=== PATIENT | female | born 1975 | race Caucasian/White ===

== ENCOUNTER 2017-09-22 13:00 | Emergency (ER) | payer OTHER, SELFPAY ==
[2017-09-22 13:13] VITALS: BP 121/78; PULSE 70; RESP 18; TEMP 37; O2SAT 98; BMI 35.2
--- NOTE | 2017-09-22 13:16 | HMH.EDUTC ---
[facility] [place] Disposition Clinical Impression: Sinusitis Qualifiers: Sinusitis location: maxillary Chronicity: acute Recurrence: not specified as recurrent Qualified Code(s): J01.00 - Acute maxillary sinusitis, unspecified Disposition: Home, Self-Care Condition on Discharge: Good Instructions: DI for Sinusitis Prescriptions: Amoxicillin/Potassium Clav [Augmentin 875-125 Tablet] 1 tab PO Q12H 10 Days #20 tab Fluticasone Propionate [Flonase Allergy Relief NS] 1 spray NS BID 10 Days #1 bot methylPREDNISolone [Medrol] 4 mg PO DAILY 6 Days #21 [email or web address] Referrals: Audelia Edwards APRN [Primary Care Provider] - Time of Disposition: 13:35 Medical Decision Making - Omar Inquiry Pt receiving controlled substance: No Vital Signs: 09/22/17 13:13 Temperature 98.6 F Temperature Source Oral Pulse Rate [Left Radial] 70 Respiratory Rate 18 Blood Pressure [Right Arm] 121/78 Blood Pressure Mean [Right Arm] 92 02 Sat by Pulse Oximetry 98 Oxygen Delivery Method Room Air - Lab Data Lab results reviewed: Yes: I reviewed the patient's lab results. Lab Results 09/22/17 13:18: Influenza Type A Ag Negative, Influenza Type B Ag Negative, Strep Scn Rapid Clinic Negative Orders (Tests/Meds): ORDERS Category Date Time Status Strep Screen Confirmation Stat Micro 09/22/17 13:18 Received [facility] [place] HPI - General Stated complaint: sore throat ear pain headache Time Seen by Provider: 09/22/17 13:16 - History of Present Illness Provider Complaint: Sore throat, ear pain, headache X 1 week. Extremely tired, no energy, and body is sore. Has sinus pain and pressure. No cough. No vomiting or diarrhea. Onset (ago): week(s) (1) Location: head Relieving factors: medication Exacerbating factors: movement Associated symptoms: fever/chills, headaches, malaise, weakness - Related Data Previous Rx's Medication Instructions Recorded Amoxicillin/Potassium Clav 1 tab PO Q12H 10 Days #20 tab 09/22/17 [Augmentin 875-125 Tablet] Fluticasone Propionate [Flonase 1 spray NS BID 10 Days #1 bot 09/22/17 Allergy Relief NS] methylPREDNISolone [Medrol] 4 mg PO DAILY 6 Days #21 tab.[email or web address] 09/22/17 Allergies Allergy/AdvReac Type Severity Reaction Status Date / Time No Known Allergies Allergy Verified 09/22/17 13:18 [facility] History I have reviewed the patient's past medical history: Yes ROS Obtained: Yes All systems reviewed & no additional complaints - Constitutional Constitutional: Reports body ache, Reports chills, Reports headache(s), Reports malaise, Reports weakness - ENT Ears, Nose, Mouth, and Throat: Reports nasal congestion, Reports sinus pain, Reports sinus pressure, Reports sore throat - Respiratory Respiratory: Yes cough Physical Exam - General General appearance: alert, in no apparent distress - Head Head exam: atraumatic, normocephalic, normal inspection - Eye Eye exam: Present: normal appearance, PERRL, EOMI - ENT ENT exam: Present: normal exam, normal oropharynx, mucous membranes moist, TM's normal bilaterally, normal external ear exam - Expanded ENT Exam Nose exam: Present: sinus tenderness Throat exam: Present: other (thick PND) - Neck Neck exam: Present: normal inspection, full ROM, trachea midline. Absent: meningismus, lymphadenopathy - Chest Chest inspection: Present: normal inspection, symmetric chest wall rise. Absent: tenderness - Respiratory Respiratory exam: Present: normal lung sounds bilaterally. Absent: respiratory distress - Cardiovascular Cardiovascular exam: Present: regular rate, normal rhythm. Absent: JVD - Abdominal Exam Abdominal exam: Present: soft, normal bowel sounds. Absent: distention, tenderness, guarding - Extremities Exam Extremities exam: Present: normal inspection, full ROM, normal capillary refill. Absent: calf tenderness - Back Exam Back exam: Present: normal inspection. Absent: tenderness - Neurological Exam Neurological exam: Present: rosemary
--- NOTE | 2017-09-22 13:23 | ED_ITS ---
[facility] [place] Disposition Clinical Impression: Sinusitis Qualifiers: Sinusitis location: maxillary Chronicity: acute Recurrence: not specified as recurrent Qualified Code(s): J01.00 - Acute maxillary sinusitis, unspecified Disposition: Home, Self-Care Condition on Discharge: Good Instructions: DI for Sinusitis Prescriptions: Amoxicillin/Potassium Clav [Augmentin 875-125 Tablet] 1 tab PO Q12H 10 Days #20 tab Fluticasone Propionate [Flonase Allergy Relief NS] 1 spray NS BID 10 Days #1 bot methylPREDNISolone [Medrol] 4 mg PO DAILY 6 Days #21 tab.[email or web address] Referrals: Audelia Edwards APRN [Primary Care Provider] - Time of Disposition: 13:35 Medical Decision Making - Omar Inquiry Pt receiving controlled substance: No Vital Signs: 09/22/17 13:13 Temperature 98.6 F Temperature Source Oral Pulse Rate [Left Radial] 70 Respiratory Rate 18 Blood Pressure [Right Arm] 121/78 Blood Pressure Mean [Right Arm] 92 02 Sat by Pulse Oximetry 98 Oxygen Delivery Method Room Air - Lab Data Lab results reviewed: Yes: I reviewed the patient's lab results. Lab Results 09/22/17 13:18: Influenza Type A Ag Negative, Influenza Type B Ag Negative, Strep Scn Rapid Clinic Negative Orders (Tests/Meds): ORDERS Category Date Time Status Strep Screen Confirmation Stat Micro 09/22/17 13:18 Received [facility] [place] HPI - General Stated complaint: sore throat ear pain headache Time Seen by Provider: 09/22/17 13:16 - History of Present Illness Provider Complaint: Sore throat, ear pain, headache X 1 week. Extremely tired, no energy, and body is sore. Has sinus pain and pressure. No cough. No vomiting or diarrhea. Onset (ago): week(s) (1) Location: head Relieving factors: medication Exacerbating factors: movement Associated symptoms: fever/chills, headaches, malaise, weakness - Related Data Previous Rx's Medication Instructions Recorded Amoxicillin/Potassium Clav 1 tab PO Q12H 10 Days #20 tab 09/22/17 [Augmentin 875-125 Tablet] Fluticasone Propionate [Flonase 1 spray NS BID 10 Days #1 bot 09/22/17 Allergy Relief NS] methylPREDNISolone [Medrol] 4 mg PO DAILY 6 Days #21 tab.ds.pk 09/22/17 Allergies Allergy/AdvReac Type Severity Reaction Status Date / Time No Known Allergies Allergy Verified 09/22/17 13:18 [facility] History I have reviewed the patient's past medical history: Yes ROS Obtained: Yes All systems reviewed & no additional complaints - Constitutional Constitutional: Reports body ache, Reports chills, Reports headache(s), Reports malaise, Reports weakness - ENT Ears, Nose, Mouth, and Throat: Reports nasal congestion, Reports sinus pain, Reports sinus pressure, Reports sore throat - Respiratory Respiratory: Yes cough Physical Exam - General General appearance: alert, in no apparent distress - Head Head exam: atraumatic, normocephalic, normal inspection - Eye Eye exam: Present: normal appearance, PERRL, EOMI - ENT ENT exam: Present: normal exam, normal oropharynx, mucous membranes moist, TM's normal bilaterally, normal external ear exam - Expanded ENT Exam Nose exam: Present: sinus tenderness Throat exam: Present: other (thick PND) - Neck Neck exam: Present: normal inspection, full ROM, trachea midline. Absent: meningismus, lymphadenopat
[2017-09-22 13:25] LABS: UTC Influenza A Antigen Negative (Negative); UTC Influenza B Antigen Negative (Negative); UTC Strep Screen (Rapid) Negative (Negative)
[2017-09-22 13:40] VITALS: BP 118/85; PULSE 75; RESP 20; TEMP 36.9; O2SAT 100
== END 2017-09-22 13:42 | disposition home or self-care (01) ==
PROVIDERS: Emergency Provider Physician Assistant; PCP Nurse Practitioner Family
DX: J01.00 Acute maxillary sinusitis, unspecified (principal)
CPT/HCPCS: 87804; 87880; 99202

== ENCOUNTER → 2017-10-22 13:35 | Outpatient (CLI) | payer OTHER, SELFPAY ==
--- NOTE | 2017-10-22 13:39 | XR_ITS ---
XR hip BI w PEL1V CLINICAL INDICATION: ITS.REASON: BILAT HIP PAIN ORDERING PHYSICIAN: Audelia Edwards PATIENT AGE: 42 years FINDINGS: No bony or joint body evident. Bilateral tubal ligation clips are present IMPRESSION: Negative bilateral hips
== END ==
PROVIDERS: PCP Nurse Practitioner Family; Visit Provider Nurse Practitioner Family
DX: M25.552 Pain in left hip (principal); M25.551 Pain in right hip
CPT/HCPCS: 73521

== ENCOUNTER 2019-10-06 12:42 | Outpatient (RCR) | payer OTHER, SELFPAY | END 2019-10-06 12:45 | disposition home or self-care (01) | LOC: PT 12:42 | PROVIDERS: PCP Nurse Practitioner Family; Visit Provider Nurse Practitioner Family | DX: M25.562 Pain in left knee (principal); M25.561 Pain in right knee | CPT/HCPCS: 97163 ==

== ENCOUNTER 2020-08-11 12:41 | Emergency (ER) | payer OTHER, SELFPAY ==
[2020-08-11 12:55] VITALS: BP 136/89; PULSE 76; RESP 16; TEMP 36.3; O2SAT 99; BMI 35.1
--- NOTE | 2020-08-11 13:16 | HMH.EDUTC ---
[facility] [place] Disposition Clinical Impression: Exposure to COVID-19 virus Sinusitis Qualifiers: Sinusitis location: unspecified location Chronicity: acute Recurrence: non-recurrent Qualified Code(s): J01.90 - Acute sinusitis, unspecified Disposition: Home, Self-Care Condition on Discharge: Good Instructions: DI for Sinusitis, Preventing the Spread of Coronavirus Discharge Instructions Additional Instructions: Drink plenty of fluids. Take tylenol for pain or fever. Return if you begin to have difficulty breathing. Follow up with your regular doctor. GO TO THE ER FOR ANY WORSENING SYMPTOMS Continue the medications that you are already on. Referrals: Nancy Guillory [Primary Care Provider] - Forms: Work/School Release Time of Disposition: 13:19 Medical Decision Making - Medical Records Medical records reviewed: No: I reviewed the patient's medical records. - Omar Inquiry Pt receiving controlled substance: No Vital Signs: 08/11/20 12:55 08/11/20 13:19 Temperature 97.4 F L 97.4 F L Temperature Source Oral Pulse Rate 76 Pulse Rate [Right Brachial] 76 Respiratory Rate 16 16 Blood Pressure 136/89 Blood Pressure [Right Arm] 136/89 Blood Pressure Mean [Right Arm] 104 Blood Pressure Source [Right Arm] Automatic Cuff Blood Pressure Position [Right Arm] Sitting 02 Sat by Pulse Oximetry 99 Orders (Tests/Meds): ORDERS Category Date Time Status Covid-19 Nasal PCR ([facility]) Routine Lab 08/11/20 12:50 Received [facility] [place] HPI - General Stated complaint: covid test Time Seen by Provider: 08/11/20 13:16 Mode of Arrival: Ambulatory Source of Information: Patient Limitations: No Limitations Description of Symptoms (Recalled from Triage Doc. by RN): COVID TEST D/T EXPOSURE. C/O LOSS OF SMELL, HOWEVER SHE IS HAVING SINUS ISSUES RIGHT NOW HEENT Symptoms (Recalled from RN notes): Yes Resp Symptoms (Recalled from RN notes): No Skin Symptoms (Recalled from RN notes): No MS Symptoms (Recalled from RN notes): No Functional Status (Recalled from RN notes): WNL - History of Present Illness Provider Complaint: She states that she has been sick for the past 3 days. She is having a cough and sinus congestion. She went to her pcp 2 days ago. She had a covid test done there that came back inconclusive. She would like for this to be repeated. She is currently taking amoxicillin for a sinus infection. - Related Data Previous Rx's Medication Instructions Recorded Amoxicillin/Potassium Clav 1 tab PO Q12H 10 Days #20 tab 09/22/17 [Augmentin 875-125 Tablet] Fluticasone Propionate [Flonase 1 spray NS BID 10 Days #1 bot 09/22/17 Allergy Relief NS] methylPREDNISolone [Medrol] 4 mg PO DAILY 6 Days #21 tab.ds.pk 09/22/17 Allergies Allergy/AdvReac Type Severity Reaction Status Date / Time No Known Allergies Allergy Verified 09/22/17 13:18 - Worker's Comp Is this a Worker's Comp case?: No [facility] History - Hepatitis A Screen Drug use history?: No High risk sexual behaviors?: No History of sexually transmitted infection?: No Currently employed?: No Childcare worker?: No Do you have indoor plumbing?: Yes Do you have electricity?: Yes Attestation statement:: This patient has been screened for Hepatitis A risk factors. I have reviewed the patient's past medical history: Yes Medical History: Denies:: Cancer, Diabetes Mellitus Type 1, Diabetes Mellitus Type 2, MRSA Amputation: No Fractures: No - Social History Smoking Status: Never smoker Alcohol Intake: never ROS Obtained: Yes All systems reviewed & no additional complaints - Constitutional Constitutional: Denies chills, Denies fever(s) - Eyes Eyes: Reports system reviewed and no additional complaints, except as docu - ENT Ears, Nose, Mouth, and Throat: Reports as per HPI - Cardiovascular Cardiovascular: Denies chest pain - Respiratory Respiratory: Reports as per HPI, Denies dyspnea, Denies stridor, Denies wheezing Physical
[2020-08-11 13:19] VITALS: BP 136/89; PULSE 76; RESP 16; TEMP 36.3; O2SAT 99
--- NOTE | 2020-08-11 19:33 | PC.NURSE ---
PATIENT NOTIFIED OF POSITIVE COVID RESULTS
== END 2020-08-11 13:26 | disposition home or self-care (01) ==
PROVIDERS: Emergency Provider Nurse Practitioner Family; PCP Nurse Practitioner Family
DX: U07.1 COVID-19 (principal); J01.90 Acute sinusitis, unspecified
CPT/HCPCS: 99202; G0463; U0003

== ENCOUNTER 2022-09-09 09:01 | Emergency (ER) | payer OTHER, SELFPAY ==
[2022-09-09 09:10] VITALS: BP 138/76; PULSE 73; RESP 22; TEMP 36.7; O2SAT 98; BMI 27.8
--- NOTE | 2022-09-09 09:24 | EXP.UTC ---
Discharge Plan Disposition Patient Disposition: Home, Self-Care Condition: Good Prescriptions Prescriptions: New methylprednisolone [Medrol (Cristobal)] 4 mg tablets,dose pack See Rx Instructions .Route .COMPLEX 6 Days Qty: 21 0RF Rx Instructions: taper pack; cefdinir 300 mg capsule 300 mg PO BID Qty: 20 0RF fluticasone propionate [Flonase Allergy Relief] 50 mcg/actuation spray,suspension 1 spray intranasal DAILY Qty: 16 0RF Rx Instructions: administer into each nostril No Action levothyroxine 75 mcg tablet 75 mcg PO DAILY Referrals Follow up/Referrals: Nancy Guillory [Primary Care Provider] - See instructions Activity Restrictions/Add. Instructions Additional Instructions/Restrictions: *Monitor Temp, Over the counter Motrin or Tylenol as directed/as needed Tylenol every 4 hours and Motrin every 6 hours (as long as your family doctor has told you that you can take it) for fever or pain. and straight to ER if unable to lower temp less than 101.0 after medication given *Warm salt water gargles may help to soothe the throat *Throat Lozenges? *Warm fluids like tea with honey may help to soothe the throat? *Sleep elevated *Humidifier/Vaporizer *Flonase 2 sprays in each nostril daily but be aware that it may take 2-3 days before you notice improvement Your throat swab was sent for culture. Those results are typically sent to your primary care. Be sure to follow up in 2-3 days with your family doctor/primary care physician if no improvement so they can review those result and treat if necessary. If you don?t have a primary care doctor, I recommend you get one but in the mean time, you will have to return to a walk in clinic Follow up IMMEDIATELY for new or worsening symptoms or no Noticeable improvement over the next 48-72 hours. 911 for difficulty breathing or swallowing Clinical Impressions Clinical Impression: Otitis media Stand Alone Forms Stand Alone Forms: Work/School Release Instructions Patient Instructions: Sore Throat, Middle Ear Infection Discharge ED Provider: Claire Orta [facility] General Stated complaint: sore throat, ear pain, ALBARADO Time Seen by Provider: 09/09/22 09:24 History of Present Illness Provider Complaint: Patient states that she has been having pain in her left ear and sore throat for several days that has continued to get worse States that today she woke up and her throat felt sore and irritated and hurts when she swallows or tries to eat or drink something and had a little headache 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 Related Data Home Medications Medication Instructions Recorded Confirmed levothyroxine 75 mcg tablet 75 mcg PO DAILY THYROID 09/09/22 09/09/22 Previous Rx's Medication Instructions Recorded cefdinir 300 mg capsule 300 mg PO BID #20 caps 09/09/22 fluticasone propionate 50 1 spray intranasal DAILY #16 grams 09/09/22 mcg/actuation nasal spray,suspension (Flonase Allergy Relief) methylprednisolone 4 mg tablets in See Rx Instructions .Route 09/09/22 a dose pack (Medrol (Cristobal)) .COMPLEX 6 days #21 tabs Allergies Allergy/AdvReac Type Severity Reaction Status Date / Time No Known Allergies Allergy Verified 09/22/17 13:18 [facility] Disclaimer: The information contained in this section may have been updated after the patient was seen, as this information can be updated by other users. Social History Smoking Status: Never smoker alcohol intake: never current occupational status: employed Travel in the last 8 weeks: None ROS Obtained: Yes All systems reviewed & no additional complaints except as documented and Yes Systems reviewed as appropriate & no additional complaints except as documented Constitutional Constitutional: Reports system reviewed and no additional complaints, except as documented, Reports as per HPI and Reports headache(s) ENT Ear
[2022-09-09 09:29] LABS: UTC Strep Screen (Rapid) Negative (Negative)
[2022-09-09 09:34] VITALS: BP 138/76; PULSE 73; RESP 22; TEMP 36.7; O2SAT 98
== END 2022-09-09 09:57 | disposition home or self-care (01) ==
PROVIDERS: Emergency Provider Nurse Practitioner; PCP Nurse Practitioner Family
DX: H66.90 Otitis media, unspecified, unspecified ear (principal)
CPT/HCPCS: 87880; 99212; 99213; G0463

== ENCOUNTER 2023-12-29 19:03 | Emergency (ER) | payer BC, SELFPAY ==
--- NOTE | 2023-12-29 19:42 | XR_ITS ---
PROCEDURE INFORMATION: Exam: XR Left Ankle Exam date and time: 12/29/2023 7:56 PM Age: 48 years old Clinical indication: Injury or trauma; Fall; Blunt trauma; Ankle; Left; Additional info: Fell TECHNIQUE: Imaging protocol: Radiologic exam of the left ankle. Views: 3 or more views. COMPARISON: CR Foot L 12/29/2023 7:53 PM FINDINGS: Bones/joints: Proximal lateral malleolus spiral fracture with 2 mm of posterior displacement. No widening of the lateral clear space. Soft tissues: Lateral ankle soft tissue swelling. IMPRESSION: Mm displaced proximal lateral malleolus spiral fracture.
--- NOTE | 2023-12-29 19:42 | XR_ITS ---
PROCEDURE INFORMATION: Exam: XR Left Foot Exam date and time: 12/29/2023 7:53 PM Age: 48 years old Clinical indication: Injury or trauma; Fall; Blunt trauma; Foot; Left; Additional info: Fell TECHNIQUE: Imaging protocol: Radiologic exam of the left foot. Views: 3 or more views. COMPARISON: No relevant prior studies available. FINDINGS: Bones/joints: Proximal lateral malleolus spiral fracture with 2 mm of posterior displacement. Soft tissues: Lateral ankle soft tissue swelling. IMPRESSION: Minimally displaced proximal lateral malleolus spiral fracture.
[2023-12-29 20:00] VITALS: BP 127/70; PULSE 75; RESP 18; TEMP 36.7; O2SAT 100; BMI 27.7
--- NOTE | 2023-12-29 20:31 | EXP.UTC ---
Discharge Plan Disposition Patient Disposition: Home, Self-Care Condition: Good Prescriptions Prescriptions: No Action fluconazole 150 mg tablet 150 mg PO Q3D Qty: 2 0RF Rx Instructions: may repeat second dose 72 hrs after first dose if symptoms persist ondansetron 4 mg tablet,disintegrating 4 mg PO Q6H PRN (Reason: nausea and vomiting) Qty: 30 0RF levothyroxine 75 mcg tablet 75 mcg PO DAILY methylprednisolone [Medrol (Cristobal)] 4 mg tablets,dose pack See Rx Instructions .Route .COMPLEX 6 Days Qty: 21 0RF Rx Instructions: taper pack; cefdinir 300 mg capsule 300 mg PO BID Qty: 20 0RF fluticasone propionate [Flonase Allergy Relief] 50 mcg/actuation spray,suspension 1 spray intranasal DAILY Qty: 16 0RF Rx Instructions: administer into each nostril Referrals Follow up/Referrals: Nancy Guillory [Primary Care Provider] - See instructions Activity Restrictions/Add. Instructions Additional Instructions/Restrictions: NO Weight bearing - crutches rest Ice with cold pack for 20 minutes remove may repeat for comfort every hour splint for support and swelling no less in the shower. Be sure not too tight but not to lose either Elevate with ankle above your heart as much as possible to help reduce swelling and therefore pain Ibuprofen every 6 hours as needed for pain or inflammation. If needs something more you can take Tylenol every 4 hours as needed as long as her primary care has told he was okayed for you to take both. If improving any do not need to follow-up you can bring begin exercising 2-3 weeks after injury. Follow-up immediately if new or worsening symptoms or no noticeable improvement over the next 3-5 days. call ortho tomorrow for appointment Clinical Impressions Clinical Impression: Fibula fracture Instructions Patient Instructions: Fibula Shaft Fracture Discharge ED Provider: Jeanette ([facility])Lai [facility] [place] HPI General Stated complaint: AO 12/29/23 1835 injury left foot Mode of Arrival: Ambulatory Source of Information: Patient Limitations: No Limitations Time Seen by Provider: 12/29/23 20:32 Description of Symptoms (Recalled from Triage Doc. by RN): Pt fell off the back steps and hurt left ankle. She cannot walk on it. HEENT Symptoms (Recalled from RN notes): No Resp Symptoms (Recalled from RN notes): No Skin Symptoms (Recalled from RN notes): No MS Symptoms (Recalled from RN notes): Yes Functional Status (Recalled from RN notes): n/a History of Present Illness Provider Complaint: 48 yr old female presents for left ankle pain after falling off deck and landing on ankle Related Data Home Medications Medication Instructions Recorded Confirmed levothyroxine 75 mcg tablet 75 mcg PO DAILY THYROID 09/09/22 09/09/22 Previous Rx's Medication Instructions Recorded cefdinir 300 mg capsule 300 mg PO BID #20 caps 09/09/22 fluticasone propionate 50 1 spray intranasal DAILY #16 grams 09/09/22 mcg/actuation nasal spray,suspension (Flonase Allergy Relief) methylprednisolone 4 mg tablets in See Rx Instructions .Route 09/09/22 a dose pack (Medrol (Cristobal)) .COMPLEX 6 days #21 tabs fluconazole 150 mg tablet 150 mg PO Q3D 2 doses #2 tabs 04/25/23 ondansetron 4 mg disintegrating 4 mg PO Q6H PRN nausea and 05/20/23 tablet vomiting #30 tabs Allergies Allergy/AdvReac Type Severity Reaction Status Date / Time No Known Allergies Allergy Verified 12/29/23 20:31 Worker's Comp Is this a Worker's Comp case?: No PFSH PFS Disclaimer: The information contained in this section may have been updated after the patient was seen, as this information can be updated by other users. Social History , COMPUTER OPERATIONS TECHNICIAN) Smoking Status: Never smoker alcohol intake: never current occupational status: employed Travel in the last 8 weeks: None ROS Obtained: Yes All systems reviewed & no additional complaints except as documented Constitutional Constitutional: Reports system reviewed and no additional complaints, except as documented Eyes Eyes: Reports system reviewed and no additional complaints, except as documented ENT Ears, Nose, Mouth, and Throat: Reports system reviewed and no additional complaints, except as documented Cardiovascular Cardiovascular: Reports system reviewed and no additional complaints, except as documented Respiratory Respiratory: Reports system reviewed and no additional complaints, except as documented Gastrointestinal Gastrointestingal: Reports system reviewed and no additional complaints, except as documented Musculoskeletal Musculoskeletal: Reports system reviewed and no additional complaints, except as documented, Reports as per HPI, Reports arthralgias, Reports joint swelling and Reports limited range of motion Integumentary/Breasts Skin/Breast: Reports system reviewed and no additional complaints, except as documented Neurologic Neurologic: Reports system reviewed and no additional complaints, except as documented Endocrine Endocrine: Reports system reviewed and no additional complaints, except as documented Hematologic/Lymphatic Henatologic/Lymphatic: Reports system reviewed and no additional complaints, except as documented Allergic/Immunologic Allergic/Immunologic: Reports system reviewed and no additional complaints, except as documented Physical Exam General General appearance: alert and in no apparent distress Head Head exam: atraumatic Eye Eye exam: Present normal appearance and PERRL ENT ENT exam: Present normal exam Respiratory Respiratory exam: Present normal lung sounds bilaterally Cardiovascular Cardiovascular exam: Present regular rate and normal rhythm Expanded Lower Extremity Exam Left: Ankle exam: Present tenderness and swelling Ankle image: 1. tenderness, swelling Neurological Exam Neurological exam: Present alert and oriented X3 Skin Skin exam: Present warm and intact Medical Decision Making Medical Records Medical records reviewed: Yes I reviewed the patient's medical records. Omar Inquiry Pt receiving controlled substance: No Omar was queried for this patient: No Vital Signs: 12/29/23 20:00 Temperature 98.1 F Temperature Source Oral Pulse Rate [Right Radial] 75 Respiratory Rate 18 Blood Pressure [Right Arm] 127/70 Blood Pressure Mean [Right Arm] 89 Blood Pressure Source [Right Arm] Automatic Cuff Blood Pressure Position [Right Arm] Sitting 02 Sat by Pulse Oximetry 100 Oxygen Delivery Method Room Air Orders (Tests/Meds): ORDERS Category Date Time Status Ankle XR - Left minimum 3 Views [XR ankle LT min 3V] Exams 12/29/23 19:42 Taken Stat Foot XR left minimum 3 views [XR foot LT min 3V] Stat Exams 12/29/23 19:42 Taken Radiology Data #1: Image(s): Tib/Fib Image Reviewed: Yes I reviewed the patient's radiology image Preliminary Findings: Abnormal (fracture fibula) Physician Consults Physician Consulted: dr gilbert Time: 20:38 Reason -: Orthopedic Eval/Care Comment/Response: fibula fx, posterior ortho glass splint, crutches, non wt bearing call for appointment tomorrow
[2023-12-29 21:29] VITALS: BP 127/70; PULSE 75; RESP 18; TEMP 36.7; O2SAT 100
--- NOTE | 2023-12-31 09:43 | PC.NURSE ---
Placed pt in orthoglass splint and referred to ortho with dr gilbert.
== END 2023-12-29 21:29 | disposition home or self-care (01) ==
PROVIDERS: Emergency Provider Nurse Practitioner Family; PCP Nurse Practitioner Family
DX: S82.62XA Displaced fracture of lateral malleolus of left fibula, initial encounter for closed fracture (principal); W17.89XA Other fall from one level to another, initial encounter; M25.572 Pain in left ankle and joints of left foot
CPT/HCPCS: 73610; 73630; 99212; 99214; G0463

== ENCOUNTER 2023-12-30 12:27 | Outpatient (CLI) | payer BC, SELFPAY ==
[2023-12-30 12:57] LABS: Basophils # 0.1 K/mm3 (0-0.2); Basophils % 1.7 % (0.1-2.0); Eosinophils # 0.1 K/mm3 (0.0-0.4); Eosinophils % 1.4 % (0.1-12.0); Hematocrit 40.9 % (37.0-47.0); Hemoglobin 12.9 g/dL (12.2-16.2); Lymphocytes # 2.5 K/mm3 (0.7-4.5); Lymphocytes % 37.2 % (10-50); Mean Corpuscular HGB Conc 31.7 g/dL (31.8-35.4); Mean Corpuscular Hemoglobin 29.1 pg (27.0-31.2); Mean Corpuscular Volume 91.8 fl (81-99); Mean Platelet Volume 8.1 fl (7.4-10.4); Monocytes # 0.3 K/mm3 (0.1-1.0); Monocytes % 4.5 % (1.7-9.3); Neutrophils # 3.7 K/mm3 (1.8-7.8); Neutrophils % 55.3 % (37.0-80.0); Platelet Count 337 K/mm3 (142-424); Red Blood Count 4.45 M/mm3 (4.20-5.40); Red Cell Distribution Width 13.8 % (11.5-17.5); White Blood Count 6.8 K/mm3 (4.8-10.8)
[2023-12-30 13:14] LABS: Chloride 111 mmol/L (98-107); Potassium 3.9 mmoL/L (3.5-5.1); Sodium 138 mmol/L (136-145)
[2023-12-30 13:16] LABS: Blood Urea Nitrogen 12 mg/dl (7-17); Estimated Glomerular Filt Rate 90 ml/min (>60); GFR (African American) 109 ML/MIN (>60)
[2023-12-30 13:17] LABS: Alanine Aminotransferase 15 U/L (12-78); Albumin Level 3.5 g/dl (3.5-5.0); Albumin/Globulin Ratio 1.3 (1.1-1.8); Alkaline Phosphatase 58 U/L (38-126); Anion Gap 7.9 mEq/L (5-15); Aspartate Amino Transferase 21 U/L (14-36); Bilirubin,Total 0.5 mg/dl (0.2-1.3); Calcium 8.9 mg/dl (8.4-10.2); Carbon Dioxide 23 mmol/L (22.0-30.0); Globulin 2.7 g/dL (1.3-3.2); Glucose 78 mg/dl (74-100); Total Protein,Serum 6.2 g/dl (6.3-8.2)
== END 2023-12-30 23:59 | disposition home or self-care (01) ==
LOC: LAB 12:28
PROVIDERS: PCP Nurse Practitioner Family; Visit Provider Physician Assistant
DX: S82.432A Displaced oblique fracture of shaft of left fibula, initial encounter for closed fracture (principal); W10.8XXA Fall (on) (from) other stairs and steps, initial encounter
CPT/HCPCS: 36415; 80053; 85025

== ENCOUNTER 2024-01-03 08:03 | Day surgery (SDC) | payer BC, SELFPAY ==
[2024-01-02 10:03] VITALS: BMI 33.5
[2024-01-03] VITALS (10 sets, daily range): BP systolic 108–144; BP diastolic 70–89; PULSE 66–94; RESP 16–18; TEMP 36.6–36.9; O2SAT 90–100; BMI 33.5
[2024-01-03 09:09] LABS: Urine Pregnancy, HCG Qual. Negative (Negative)
--- NOTE | 2024-01-03 10:49 | P.PNANES_ITS ---
[facility] Disclaimer: The information contained in this section may have been updated after the patient was seen, as this information can be updated by other users. Social History Smoking Status: Never smoker alcohol intake: never substance use type: denies use current occupational status: employed Travel in the last 8 weeks: None [facility] Anesthesia Checklist Patient Identification Patient Identification: Arm Band, Family and Verbal (Name & ) Structural Data Admitted From: Home Planned Operative Procedure/s: ORIF LEFT Lateral Malleolous FX Consent for Planned Operative Procedure(s) Verified: Yes Verified Documents: Surgical Consent and History and Physical NPO Status Verified Time NPO: 20:30 Chart Verification Results Verified: CBC, BMP and HCG Additional verifications Patient : No Anesthesia Reactions: No Hx Blood Transfusions: No Blood Transfusion Reaction: No Cardiovascular Assessment Heart Sounds: S1 & S2 Pulse Rhythm: Irregular Peripheral Edema: No Airway Assessment Mallampati Score:: Class II C-Spine Mobility Assessed: Yes (FROM) TMJ Mobility Assessed: Yes Dentition: Good Dentition (Nothing loose per pt.) Neurological Assessment Level of Consciousness: Awake, Alert, Appropriate and Follows Commands Hx Seizures: No Numbness or tingling in extremities: No Anesthesia Plan Anesthesia Risk discussed: Yes Anesthesia Plan: Verified ASA Class: II Anesthesia Type: General w/block
--- NOTE | 2024-01-03 10:50 | XR_ITS ---
FINAL REPORT CLINICAL HISTORY: ORIF LEFT ANKLE 12 SECONDS FLUORO TIME 0.50MBY COMPARISON: None FINDINGS: FLUOROSCOPY LESS THAN 1 HOUR HISTORY: ORIF left ankle FINDINGS: Fluoroscopic guidance was provided for intraoperative exam for ORIF. 2 spot films were obtained. 12 seconds of fluoroscopy time were used. 0.5 mGy of exposure were accumulated. IMPRESSION: As above. Reviewed, Interpreted and Dictated by Yen Pritchett MD Transcribed by Santa Jensen Authenticated and [facility]
--- NOTE | 2024-01-03 12:20 | EXP.OP.NOTE ---
Date of procedure: 01/03/24 Pre-op Diagnosis:: Left ankle lateral malleolus fracture Post-op Diagnosis:: Same Procedure performed:: Open reduction internal fixation lateral malleolus left ankle Surgeon:: Wilver Townsend DO Bobbin Loose End Finder(s):: Antonio VITAL PREPRESS TECHNICIAN:: Stacia Garrison Anesthesia: GETA and regional Estimated blood loss (mL): 0 Clinical Note:: Implants Synthes small frag set with one third tubular plate Operative findings:: See dictation Operative note:: Patient is identified preoperatively. Left ankle marked with yes and my initials. Underwent a block with anesthesia. Taken to the operating room. Placed upon the operating bed. General anesthesia was administered and airway secured. Left lower extremity was then prepped and draped in normal sterile fashion. Once prepped and draped final operative timeout performed to identify proper patient procedure and extremity. Everyone involved the case agreed. There is no counter indications to beginning. Did receive preoperative antibiotics. Marking pen was used to el the bony landmarks of the lateral malleolus x-ray was brought into identify the fracture site. Esmarch was used to exsanguinate the extremity pneumatic tourniquet inflated to 300 mmHg. Skin knife was used incise the skin, careful dissection was taken down to identify the fracture site and lateral malleolus. Fracture site was cleaned. Using a [id number] and lobster claw clamp anatomical reduction was obtained the lateral malleolus. This temporary fixation remained in place as a an anterior to posterior lag screw was placed. Once the lag screw was placed one third tubular plate was selected cortical screws placed proximally and 4-0 cancellous screws distally to give good plate stabilization of the fracture. X-rays taken AP and lateral views and saved. Irrigation of the wound performed. Deep layers closed with 0 Vicryl, subcutaneous with 2-0 Vicryl 3-0 nylon the skin for closure. Sterile dressing placed. Well-padded posterior splint placed. Patient waken anesthesia taken recovery stable condition. Condition: stable Disposition: PACU Complications:: None apparent
--- NOTE | 2024-01-03 12:43 | EXP.ANES.I ---
[facility] Anesthesia Record Part I Anesthesia Record I Intake, IV Amount: 900 Hydration: Adequate Estimated blood loss (mL): 10 Urine output (mL): 0 Blood Products used (#): none Blood Pressure: 144/88 SaO2: 96 Pulse Rate: 94 Airway Patency: Patent Respiratory Rate: 16 Temperature: 98.4 F Patient is:: Awake (Talking) and Stable Stable to PACU at:: 12:45
--- NOTE | 2024-01-03 14:13 | EXP.ANES.II ---
[facility] Anesthesia Record Part II Anesthesia Record Part II Discharge Time: 13:10 Destination: Surgical Day Care (OP Surgery) PACU nurse assessment reviewed?: Yes Patient Condition:: Good Anesthesia Complications:: None Swallowing reflex intact?: Yes Airway Patency: Patent Cyanosis?: No Blood Pressure: 123/89 SaO2: 95 Respiratory Rate: 16 Pulse Rate: 74 Temperature: 98.4 F Mental Status: Alert & Oriented Pain level:: 0 Nausea and/or vomitting:: None Intake, IV Amount: 900 Hydration: Adequate
== END 2024-01-03 13:50 | disposition home or self-care (01) ==
PROVIDERS: PCP Nurse Practitioner Family; Visit Provider Orthopaedic Surgery
PROC: (CPT 27792; principal; 2024-01-03 09:45)
DX: S82.62XA Displaced fracture of lateral malleolus of left fibula, initial encounter for closed fracture (principal); W10.8XXA Fall (on) (from) other stairs and steps, initial encounter; Y92.018 Other place in single-family (private) house as the place of occurrence of the external cause
CPT/HCPCS: 27792; 73600; 76000; 81025; 96374; C1713; J1885; J2250; J2405; J3010

== ENCOUNTER 2024-01-16 10:31 | Outpatient (CLI) | payer BC, SELFPAY ==
--- NOTE | 2024-01-16 10:36 | XR_ITS ---
FINAL REPORT CLINICAL HISTORY: Left lateral malleolus orif COMPARISON: Prior intraoperative films dated 01/03/2024 FINDINGS: LEFT ANKLE: Three views of the left ankle were obtained. There is no acute fracture or dislocation. Postoperative changes noted in the distal fibula with an orthopedic end plate and screws. Lateral soft tissue swelling is present. The joint spaces and mortise are intact. There is no soft tissue abnormality. IMPRESSION: Postoperative changes of ORIF distal fibula. Reviewed, Interpreted and Dictated by Facundo Alcala III, MD Transcribed by Santa Jensen Authenticated and [facility]
== END 2024-01-16 23:59 | disposition home or self-care (01) ==
LOC: RAD 10:32
PROVIDERS: PCP Nurse Practitioner Family; Visit Provider Orthopaedic Surgery
DX: M25.572 Pain in left ankle and joints of left foot (principal)
CPT/HCPCS: 73610

== ENCOUNTER 2024-02-13 09:25 | Outpatient (CLI) | payer BC, SELFPAY ==
--- NOTE | 2024-02-13 09:33 | XR_ITS ---
FINAL REPORT CLINICAL HISTORY: lt ankle pain COMPARISON: 01/16/2024 FINDINGS: LEFT ANKLE: Three views of the left ankle were obtained. There is a lateral malleolus fracture with postop changes from ORIF. A screw plate and multiple screws are present. There is no new bony abnormality. A plantar calcaneal spur is noted. The joint spaces and mortise are intact. There is no soft tissue abnormality. IMPRESSION: Fracture with postoperative changes as described. No acute bony abnormality. Reviewed, Interpreted and Dictated by Facundo Alcala III, MD Transcribed by Muriel Zamudio Authenticated and [facility]
== END 2024-02-13 23:59 | disposition home or self-care (01) ==
LOC: RAD 09:26
PROVIDERS: PCP Nurse Practitioner Family; Visit Provider Orthopaedic Surgery
DX: M25.572 Pain in left ankle and joints of left foot (principal)
CPT/HCPCS: 73610

== ENCOUNTER 2024-03-12 09:42 | Outpatient (CLI) | payer BC, SELFPAY ==
--- NOTE | 2024-03-12 09:47 | XR_ITS ---
FINAL REPORT CLINICAL HISTORY: Left ankle orif sx december 2023 COMPARISON: 02/13/2024 FINDINGS: LEFT ANKLE: Three views of the left ankle were obtained. There is no acute fracture or dislocation. There are postoperative changes in the distal fibula once again noted, with a sideplate and multiple screws bridging a distal fibular fracture. There is probable interval healing of the fracture since the prior exam. The joint spaces and mortise are intact. A plantar calcaneal spur is once again noted. Soft tissue swelling surrounding the ankle remains present. IMPRESSION: Post operative changes in the distal fibula once again noted, with probable interval healing of the distal fibular fracture since the prior exam. Reviewed, Interpreted and Dictated by Facundo Alcala III, MD Transcribed by Santa Jensen Authenticated and [facility]
== END 2024-03-12 23:59 | disposition home or self-care (01) ==
LOC: RAD 09:43
PROVIDERS: PCP Nurse Practitioner Family; Visit Provider Orthopaedic Surgery
DX: M25.572 Pain in left ankle and joints of left foot (principal)
CPT/HCPCS: 73610

== ENCOUNTER 2024-06-23 16:00 | Outpatient (RCR) | payer BC, SELFPAY | END 2024-06-23 23:59 | disposition home or self-care (01) | LOC: PT 16:00 | PROVIDERS: PCP Nurse Practitioner Family; Visit Provider Nurse Practitioner Family | DX: M75.51 Bursitis of right shoulder (principal) | CPT/HCPCS: 97014; 97035; 97110; 97140; 97163; G0283 ==

== ENCOUNTER 2024-09-08 15:20 | Outpatient (CLI) | payer BC, SELFPAY ==
--- NOTE | 2024-09-08 15:22 | XR_ITS ---
FINAL REPORT CLINICAL HISTORY: Left ankle pain surgery december 2023 fell 2 weeks ago, pain and swelling on the lateral side COMPARISON: 03/12/2024 FINDINGS: LEFT ANKLE Three views demonstrate no acute fracture or dislocation. Post ORIF changes are seen of the distal fibula. Hardware is unremarkable. The visualized joint spaces are normally aligned. The soft tissues are unremarkable. IMPRESSION: Postoperative changes without acute bony abnormality. Reviewed, Interpreted and Dictated by Yen Pritchett MD Transcribed by Rachel Garcia Authenticated and [facility]
== END 2024-09-08 23:59 | disposition home or self-care (01) ==
LOC: RAD 15:21
PROVIDERS: PCP Nurse Practitioner Family; Visit Provider Orthopaedic Surgery
DX: M25.572 Pain in left ankle and joints of left foot (principal)
CPT/HCPCS: 73610

== ENCOUNTER 2024-10-05 09:23 | Emergency (ER) | payer BC, SELFPAY ==
[2024-10-05 09:30] VITALS: BP 134/89; PULSE 84; RESP 16; TEMP 36.4; O2SAT 98; BMI 28.9
--- NOTE | 2024-10-05 09:41 | CT_ITS ---
FINAL REPORT TECHNIQUE: Noncontrast exam This study was performed with techniques to keep radiation doses as low as reasonably achievable, (ALARA). Individualized dose reduction techniques using automated exposure control or adjustment of mA and/or kV according to the patient''s size were employed. CLINICAL HISTORY: new anisocoria L eye 6mm reactive FINDINGS: No abnormal density is seen. Ventricles are normal. There is no hemorrhage. No mass effect is seen. Bone windows show no evidence of fracture. IMPRESSION: No acute findings Reviewed, Interpreted and Dictated by Yen Pritchett MD Transcribed by Yanelis Beckwith Authenticated and [facility]
--- NOTE | 2024-10-05 09:41 | XR_ITS ---
FINAL REPORT CLINICAL HISTORY: fall, recent surgery, eval hardware. Lateral mal p COMPARISON: 09/08/2024 FINDINGS: Three views show post ORIF changes of the distal fibula. There is no evidence of acute fracture. The mortise is intact. IMPRESSION: Stable exam. Reviewed, Interpreted and Dictated by Yen Pritchett MD Transcribed by Yanelis Beckwith Authenticated and . [facility]
[2024-10-05] MEDS: IBUPROFEN 600 MG TABLET PO (09:51)
[2024-10-05] MEDS: ACETAMINOPHEN 500MG TAB 1000 MG PO (09:51)
--- NOTE | 2024-10-05 09:58 | ED_ITS ---
Discharge Plan Disposition Patient Disposition: Home, Self-Care Chief Complaint: Extremity Injury, Lower Prescriptions Prescriptions: No Action lamotrigine 150 mg tablet 150 mg PO DAILY Patient Comments: TAKE 1 TABLET BY MOUTH ONCE DAILY FOR MOOD ondansetron 8 mg tablet,disintegrating 8 mg PO TIDP PRN (Reason: Nausea And Vomiting) Patient Comments: DISSOLVE 1 TABLET IN MOUTH EVERY 8 HOURS NEEDED FOR NAUSEA AND VOMITING (DME) insulin syringe-needle U-100 [Sure Comfort Insulin Syringe] 0.5 mL 31 gauge x 5/16 syringe See Rx Instructions .ROUTE .MEDSUPPLY Qty: 10 Patient Comments: USE DIRECTED Rx Instructions: As directed celecoxib [Celebrex] 200 mg capsule 200 mg PO DAILY Qty: 30 2RF levothyroxine 75 mcg tablet 75 mcg PO DAILY Patient Comments: TAKE 1 TABLET BY MOUTH ONCE DAILY ON AN EMPTY STOMACH 30 MINUTES BEFORE BREAKFAST tirzepatide (weight loss) 2.5 mg/0.5 mL Pen Injector 2.5 mg SQ WEEKLY Rx Instructions: for 4 weeks Referrals Follow up/Referrals: Nnacy Guillory [Primary Care Provider] - See instructions Activity Restrictions/Add. Instructions Additional Instructions/Restrictions: Call your family doctor to establish care for this visit to the emergency department and schedule follow-up within 48 hours to ensure improvement. If you have any worsening of your condition or any other concerning signs or symptoms, return to the emergency department or your primary care doctor for further evaluation. Wash hands really well before taking contacts out and putting them in. Discontinue antihistamine eyedrops for the next 24 hours. If pupils do not return to equal size, return to the emergency department for CT angiograms of the head and neck to make sure we are ruling out aneurysm. Clinical Impressions Clinical Impression: Anisocoria, Acute left ankle pain, Fall Print Language Print Language: Ethiopian Discharge ED Provider: Stephon Luna General Adult [facility] General Chief complaint: Extremity Injury, Lower Stated complaint: AO 10/05 0840 L ankle pain Time Seen by Provider: 10/05/24 09:33 Mode of Arrival: Wheelchair Source of Information: Patient and Medical Record Description of Symptoms (Recalled from ER Triage Doc. by RN): Patient came to ED via wheelchair and c/o right ankle pain after a fall chasing a child at school/work around 0845. Pt does have redness and swelling on ankle and a small abraision on right knee. Patient mobility of ankle is limited to flexion +2 no hyperextension, with minimal lateral movement. Pt states she had surgery on R ankle in January of 2024. Upon assessment of other systems, right eye is substanitally dilated more than left. PT states that she does wear a contact only in her right eye but has never noticed the difference in dilation until this morning and does not recall hitting her head during her fall this morning. Patient is alert and oriented to time, place, self, and situation. Patient appears dressed appropriately and grimaces in pain when assisted from wheelchair to bed. Respirations are within normal limits and unlabored. Pulses are +2 and cap refill is <3secs. States pain is 8/10. History of Present Illness HPI narrative: Please note that above description of symptoms, in this electronic medical record under categorization of recalled from ER triage doctor by RN are reflective of an initial nursing assessment, however, is not reflective of my full history and physical exam that was personally taken and clarified. Consequentially, this preceding description of symptoms, which may include the patient's categorized chief complaint in the EMR, do not reflect my personal clinical impression, and the ultimate description of history of present illness and patient stated complaints should be deferred to this section of the note. Unless stated otherwise or congruent with this section of the note, additional signs, symptoms, or incongruence should be interpreted as inaccurate with my clinical impression. Related Data Home Medications ?Medication ?Instructions ?Recorded ?Confirmed levothyroxine 75 mcg tablet 75 mcg PO DAILY 01/03/24 10/05/24 lamotrigine 150 mg tablet 150 mg PO DAILY 03/12/24 10/05/24 insulin syringe-needle U-100 0.5 #10 ea 09/08/24 10/05/24 mL 31 gauge x 5/16 (Sure Comfort Insulin Syringe) ondansetron 8 mg disintegrating 8 mg PO TIDP PRN Nausea And 09/08/24 10/05/24 tablet Vomiting tirzepatide (weight loss) 2.5 2.5 mg SQ WEEKLY 10/05/24 10/05/24 mg/0.5 mL subcutaneous pen injector Previous Rx's ?Medication ?Instructions ?Recorded celecoxib 200 mg capsule (Celebrex) 200 mg PO DAILY #30 caps 09/10/24 Allergies Allergy/AdvReac Type Severity Reaction Status Date / Time No Known Allergies Allergy Verified 09/08/24 15:46 [facility] Disclaimer: The information contained in this section may have been updated after the patient was seen, as this information can be updated by other users. Social History Smoking Status: Never smoker alcohol intake: never substance use type: denies use current occupational status: employed Travel in the last 8 weeks: None Have you lived/traveled outside [place] in past 30 days?: No Contact w/someone who lives/traveled outside US past 30 days?: No Exposure to someone with infectious disease in past 14 days?: No Do you have a fever (greater than 100.4 F or 38 C)?: No Have you tested positive for COVID-19: No Exposed to someone with COVID-19 in past 14 days?: No Do you have a sore throat?: No Do you have a cough?: No Do you have any weakness?: No Do you have any diarrhea?: No Are you experiencing any unusual bleeding?: No Do you have any muscle aches/pain?: No Do you have any abdominal pain?: No Are you experiencing loss of taste or smell?: No Other Medical History Have you received the Pneumonia Vaccine: No ROS Obtained: Yes All systems reviewed & no additional complaints except as documented Physical Exam General General appearance: alert Head Head exam: atraumatic and normocephalic Eye Eye exam: Present normal appearance and EOMI; Absent PERRL (Left pupil 6 mm and reactive, right pupil 3 mm and reactive) Neck Neck exam: Present normal inspection, full ROM and trachea midline Respiratory Respiratory exam: Absent respiratory distress, wheezes, stridor, accessory muscle use or prolonged expiratory phase Cardiovascular Cardiovascular exam: Present other (Pulses equal symmetric in upper and lower extremities) Abdominal Exam Abdominal exam: Present soft; Absent distention, tenderness or pulsatile mass Extremities Exam Extremities exam: Present tenderness; Absent edema Neurological Exam Neurological exam: Present alert, oriented X3 and CN II-XII intact; Absent motor sensory deficit Skin Skin exam: Present warm and dry; Absent diaphoresis or erythema Medical Decision Making Medical Records Medical records reviewed: Yes I reviewed the patient's medical records. Screening: Per USPSTF and CDC recommendations, given the prevalence of disease in our region, it is our hospital?s policy to screen for HIV and viral Hepatitis for all patients aged 18 and over and those with ongoing risk factors. Omar Inquiry Pt receiving controlled substance: No Omar was queried for this patient: No Vital Signs: 10/05/24 09:30 Temperature 97.6 F Temperature Source Oral Pulse Rate [Right] 84 Respiratory Rate 16 Blood Pressure [Right Arm] 134/89 Blood Pressure Mean [Right Arm] 104 Blood Pressure Source [Right Arm] Automatic Cuff 02 Sat by Pulse Oximetry 98 Oxygen Delivery Method Room Air Orders (Tests/Meds): ED MEDICATIONS Discontinued Medications Generic Name Dose Route Start Last Admin Trade Name Freq PRN Reason Stop Dose Admin Acetaminophen 1,000 mg 10/05/24 09:41 10/05/24 09:51 Acetaminophen 500mg Tab PO 10/05/24 09:42 1,000 mg ONCE ONE Administration Ibuprofen 600 mg 10/05/24 09:41 10/05/24 09:51 Ibuprofen 600 Mg Tablet PO 10/05/24 09:42 600 mg ONCE ONE Administration ORDERS Category Date Time Status CT head/brain wo con Stat Cat Scan 10/05/24 09:41 Completed Ankle XR - Left minimum 3 Views [XR ankle LT min 3V] Exams 10/05/24 09:41 Completed Stat Medical Decision Narrative: 49-year-old female presenting with left ankle pain. She states that she was at work when she was trying to control issue with the emotional outburst. During this, she tripped, fell, landed on her left ankle and knee. Recently had surgery on that left ankle, so concerned she may have injured it. No other concerns. Denies hitting her head, any other trauma. History was obtained via conversation with patient. On arrival, patient hemodynamically stable, alert, oriented x4, appropriate, GCS 15, moving all extremities spontaneously. Full physical exam performed and significant for very clinically well-appearing female no acute distress. Speaking full sentences. Right pupil 3 and reactive, left pupil 6 mm and reactive, both with consensual response. Neurologically intact otherwise. Patient does have tenderness about the lateral aspect of her left ankle at her previous surgery site, but outwardly normal and intact. Neurovascularly intact. Differential includes intracranial hemorrhage, intracranial mass, intracranial aneurysm, sprain, strain, hardware fracture, among others. Initially started with conservative management. CT of the head without contrast as well as x-ray of that left ankle. If this is negative, may need to move onto CT angiograms of the head and neck because patient has no history of anisocoria. On independent interpretation, no intracranial mass, hemorrhage, or other a bnormality. No abnormality about the ankle. See radiology read for definitive read. Because scans were negative, further conversation had with patient regarding CT angiograms of the neck and the importance. She is declining. Voiced understanding's of risks and benefits and still declining CTAs. She does state that she has been using antihistamine drops only in her left eye which is the only she keeps contacting, this could be related. There is recommended the patient receive CT angiograms of the head to rule out aneurysm, adamantly declining. It was recommended that she follow closely with her family doctor regarding this visit to the emergency department. Is also recommended that she wash her hands, discontinue antihistamine drops for the next 24 hours to make sure pupils return to normal, and if not, return to the emergency department for further workup and scans. She voiced her understanding. Because patient at baseline without signs or symptoms of clinical decompensation, deemed appropriate for discharge. Results were relayed to patient who voiced understanding and were agreeable to outpatient management and follow up. I discussed my clinical impression with patient and answered all questions. At this time, the evidence for any other entities in the differential is insufficient to warrant any further testing or ED observation. This was explained as well. Advisory was given that persistent or worsening symptoms require further evaluation. I confirmed the understanding of this discussion. Tool Radial Drill Press Set Up Operator disclaimer Much of this encounter note is an electronic tailercpa spoken language to printed text. Electronic tailercpa of the spoken language may permit errors. Although I have reviewed the note, some errors may still exist. Critical Care Critical Care Time Critical Care Time: No
--- NOTE | 2024-10-05 10:03 | PC.NURSE ---
Pt out of room with Rad
--- NOTE | 2024-10-05 10:24 | PC.NURSE ---
Dr. Luna at bedside
[2024-10-05 10:45] VITALS: BP 135/80; PULSE 80; RESP 16; TEMP 36.4; O2SAT 98
== END 2024-10-05 11:00 | disposition home or self-care (01) ==
PROVIDERS: Emergency Provider Emergency Medicine; PCP Nurse Practitioner Family
DX: M25.572 Pain in left ankle and joints of left foot (principal); S80.212A Abrasion, left knee, initial encounter; H57.02 Anisocoria; W01.0XXA Fall on same level from slipping, tripping and stumbling without subsequent striking against object, initial encounter; Y93.89 Activity, other specified; Y92.219 Unspecified school as the place of occurrence of the external cause
CPT/HCPCS: 70450; 73610; 99284